=== PATIENT | male | born 1990 | race Hispanic/Latino ===

== ENCOUNTER 2019-12-21 05:16 | Emergency (ER) | payer SELFPAY ==
[2019-12-21] MEDS ORDERED: Ketorolac Tromethamine 60 MG/2 ML VIAL ONE (05:58)
== END 2019-12-21 06:02 | disposition home or self-care (01) ==
LOC: ERS 05:16
DX: K03.81 Cracked tooth (principal); K08.89 Other specified disorders of teeth and supporting structures
CPT/HCPCS: 96372; 99282; J1885

== ENCOUNTER 2020-01-11 11:44 | Inpatient (IN) | payer SELFPAY ==
[~2020-01-11 11:44] MED LIST: Dexamethasone 20 MG/5 ML VIAL ONE; Glycopyrrolate 0.2 MG/ML 5 ML SYRINGE ONE; Lidocaine 1% PF 5 ML VIAL ONE; Ondansetron PF 4 MG/2 ML Vial ONE; PROPOFOL 200 MG/20 ML VIAL ONE; Rocuronium Bromide 10 MG/ML (10ML VIAL) ONE
[2020-01-11] MEDS ORDERED: Acetaminophen 500 MG TAB ONE (12:14)
[2020-01-11 13:17] LABS: #Lymphocytes 0.6 thou/uL (1.20-3.40); #Monocytes 0.8 thou/uL (0.11-0.59); #Neutrophils 10.7 thou/uL (1.40-6.50); %Basophils 0.3 % (0.0-1.0); %Eosinophils 0.4 % (0.0-10.0); %Lymphocytes 4.8 % (21.0-51.0); %Monocytes 6.4 % (0.0-10.0); %Neutrophils 88.2 % (42.0-75.0); Hemoglobin 14.1 g/dL (14.0-18.0); Mean Corpuscular HGB CONC 34.9 g/dL (32.0-36.0); Mean Corpuscular Hemoglobin 30.9 pg (27.0-31.0); Mean Corpuscular Volume 88.5 fL (78.0-98.0); Mean Platelet Volume 7.2 fL (7.4-10.4); Platelet Count 201 thou/uL (130-400); Red Blood Cell (RBC) Count 4.57 mill/uL (4.70-6.10); White Blood Cell (WBC) Count 12.2 thou/uL (4.8-10.8)
[2020-01-11] MEDS ORDERED: Clindamycin/D5W 900 mg/50 ml Premix Bag ONE ×2 (13:26→18:43)
[2020-01-11 13:54] LABS: ALT (SGPT) 18 U/L (8-55); AST (SGOT) 18 U/L (5-34); Albumin 4.2 g/dL (3.5-5.0); Alkaline Phosphatase 59 U/L (40-110); Anion Gap 13 mmol/L (10-20); BUN (Urea Nitrogen) 11 mg/dL (8.9-20.6); Bilirubin, Total 0.8 mg/dL (0.2-1.2); Calc. Creatinine Clearance 0 mL/min (70-130); Calcium 8.9 mg/dL (7.8-10.44); Carbon Dioxide 24 mmol/L (22-29); Chloride 100 mmol/L (98-107); Estimated GFR-MDRD Greater than 90; Globulin 2.7 g/dL (2.4-3.5); Glucose 111 mg/dL (70-105); Potassium 3.8 mmol/L (3.5-5.1); Protein, Total 6.9 g/dL (6.0-8.3); Sodium 133 mmol/L (136-145)
--- NOTE | 2020-01-11 14:12 | CT ---
CT neck soft tissues with contrast: DATE: 01/11/2020 HISTORY: 29-year-old male with left facial swelling and fever. FINDINGS: There is periapical lucency of bone around the root of the most posterior left lower molar tooth. At the lingual side of the left posterior aspect of the oral cavity, there are 2 tiny moderately low density focal lesions surrounded by rim of enhancement, consistent with tiny abscesses in the left gi ngiva. There is infiltrating edema throughout the left submandibular space, including circumferential surrou nding of the left submandibular gland, in the left parapharyngeal space, with involvement of the region of the left palatine tonsil, extending across the retropharyngeal space to the contralateral r ight side of the space posterior to the right posterior oral cavity. There is thickening of the adenoids, and the edema of the pharyngeal mucosal space of the oropharynx, including level of palatine tonsils, and edema of the uvula, causes at least moderate narrowing of the oropharyngeal airway. The epiglottis and the rest of the larynx are normal. No cervical lymphaden opathy by size criteria. Normal appearance of thyroid gland and trachea. Lung apices are grossly clear. IMPRESSION: 1. Left-sided odontogenic infection: Left dental abscess involving the lingual side of the gingiva ne ar periapical lucency involving left mandibular last molar tooth. 2. Edema representing cellulitis spilling into different spaces in the neck, consistent with cellulit is, most severely affecting the left submandibular space. This raises the possibility of Ahsan's angina.. 3. At the level of the oropharynx, the airway is mildly to moderately narrowed at this time.
[2020-01-11] MEDS ORDERED: Ondansetron PF 4 MG/2 ML Vial IVP PRN (15:33)
[2020-01-11] MEDS ORDERED: Calcium Carbonate 500 MG ChewTAB PO PRN (15:33)
[2020-01-11] MEDS ORDERED: Senokot S 8.6-50 MG TAB PO PRN (15:33)
[2020-01-11] MEDS ORDERED: Ondansetron ODT 4 MG TAB PO PRN (15:33)
[2020-01-11] MEDS ORDERED: HYDROcodone/Acetaminophen 5/325 mg Tablet PO PRN (15:33)
[2020-01-11] MEDS ORDERED: Acetaminophen 325 MG TAB PO PRN (15:33)
[2020-01-11] MEDS ORDERED: Ketorolac Tromethamine 30 MG/ML VIAL IVP PRN (15:36)
[2020-01-11] MEDS ORDERED: Cepastat Lozenges 1 LOZ PO PRN (15:37)
[2020-01-11] MEDS ORDERED: Clindamycin/D5W 900 MG in Premix Bag 1 BAG IVPB SCH (15:45)
[2020-01-11 17:11] VITALS: BMI 22.1
[2020-01-11] MEDS ORDERED: Lidocaine 1% w/Epinephrine 1:100K 20 ML VIAL ONE (17:52)
[2020-01-11] MEDS ORDERED: Chlorhexidine Gluconate 15 ML UDCUP SSP ONE (17:52)
[2020-01-11] MEDS ORDERED: Bacitracin Zinc Ointment 30 gm TUBE ONE (17:52)
[2020-01-11] MEDS ORDERED: Ampicillin/Sulbactam 3 GM in Sodium Chloride 0.9% 100 ML IVPB SCH (18:00)
[2020-01-11] MEDS ORDERED: Fentanyl 100 MCG/2 ML VIAL ONE (18:05)
[2020-01-11] MEDS ORDERED: Dexmedetomidine 200 MCG/2 ML VIAL ONE (18:05)
[2020-01-11] MEDS ORDERED: AFRIN NASAL MIST 15 ML BOT ONE (18:50)
[2020-01-11] MEDS: Famotidine 20 MG TAB PO SCH (21:05)
[2020-01-11] MEDS: diphenhydrAMINE 25 MG CAP PO PRN (21:05)
[2020-01-11] MEDS: Sodium Chloride 0.9% 1,000 ML IV SCH (21:06)
[2020-01-11] MEDS: Ampicillin/Sulbactam 3 GM in Sodium Chloride 0.9% 100 ML IVPB SCH (22:47)
[2020-01-12] MEDS: Ampicillin/Sulbactam 3 GM in Sodium Chloride 0.9% 100 ML IVPB SCH ×2 (03:02→09:34)
[2020-01-12] MEDS: Sodium Chloride 0.9% 1,000 ML IV SCH (05:10)
[2020-01-12 06:12] LABS: #Lymphocytes 0.7 thou/uL (1.20-3.40); #Monocytes 0.7 thou/uL (0.11-0.59); #Neutrophils 8.7 thou/uL (1.40-6.50); %Eosinophils 0.1 % (0.0-10.0); %Lymphocytes 6.7 % (21.0-51.0); %Monocytes 6.7 % (0.0-10.0); %Neutrophils 86.5 % (42.0-75.0); Hemoglobin 12.8 g/dL (14.0-18.0); Mean Corpuscular HGB CONC 35.5 g/dL (32.0-36.0); Mean Corpuscular Hemoglobin 31.6 pg (27.0-31.0); Mean Corpuscular Volume 89.1 fL (78.0-98.0); Mean Platelet Volume 7.9 fL (7.4-10.4); Platelet Count 196 thou/uL (130-400); Red Blood Cell (RBC) Count 4.04 mill/uL (4.70-6.10)
[2020-01-12 06:38] LABS: Anion Gap 12 mmol/L (10-20); BUN (Urea Nitrogen) 10 mg/dL (8.9-20.6); Calc. Creatinine Clearance 115 mL/min (70-130); Calcium 8.8 mg/dL (7.8-10.44); Carbon Dioxide 23 mmol/L (22-29); Chloride 104 mmol/L (98-107); Estimated GFR-MDRD Greater than 90; Glucose 131 mg/dL (70-105); Potassium 4.3 mmol/L (3.5-5.1); Sodium 135 mmol/L (136-145)
[2020-01-12] MEDS: diphenhydrAMINE 25 MG CAP PO PRN (07:16)
--- NOTE | 2020-01-12 08:32 | HP ---
The patient was seen and examined on January 11, 2020. CHIEF COMPLAINT: Dental pain of one day duration. HISTORY OF PRESENT ILLNESS: The patient is a 29-year-old male with history of dental abscess in the past, presented to the emergency room with above complaints. Three weeks ago, the patient was evaluated in the emergency room for toothache. He was found to have a dental abscess. He received a dose of Toradol along with penicillin and was discharged home. He never was seen by a dentist as outpatient. Over the last 2 to 3 days, he started having toothache that is progressively getting worse. He noticed some swelling of his jaw as well. He has had fever along with chills. He had difficulty swallowing as well. He had one episode of vomiting. He had difficulty keeping the jaw open. In the emergency room, his initial vital signs showed temperature 103.1 with respirations 20, pulse of 105 with a blood pressure 133/79, O2 saturation 97% on room air. CT scan of the neck and soft tissue was consistent with left-sided odontogenic infection along with extension to the deep space in the neck consistent with Ahsan's angina. He received clindamycin along with IV fluid in the emergency room. PAST MEDICAL HISTORY: Reviewed with the patient and none. PAST SURGICAL HISTORY: Appendectomy. ALLERGIES: NO KNOWN DRUG ALLERGIES. CURRENT HOME MEDICATIONS: Reviewed with the patient and none. SOCIAL HISTORY: The patient smokes up to one pack a day. Denies any alcohol or drug use. He lives at home with his family. FAMILY HISTORY: Negative for heart disease. REVIEW OF SYSTEMS: All other review of systems was reviewed and was found negative. PHYSICAL EXAMINATION: VITAL SIGNS: As discussed above. GENERAL: A 29-year-old male, in mild distress due to the pain. HEENT: Head, atraumatic and normocephalic. Sclerae anicteric. Trismus along with swelling in the left lower molar area. There was some lymph nodes palpable as well along with mild swelling. NECK: Supple, no JVD. Lymph nodes as discussed above. LUNGS: Clear to auscultation bilaterally. No wheezing, rales, or rhonchi. HEART: S1 and S2 present. Regular rate and rhythm. No rubs or gallops. ABDOMEN: Soft, nontender. Bowel sounds present. EXTREMITIES: No edema or calf tenderness. NEUROLOGIC: Grossly nonfocal, moves all 4 extremities. PSYCHIATRY: Alert, awake, oriented x3. SKIN: Warm and dry. LYMPH NODE: No palpable lymph nodes in the neck. PERIPHERAL VASCULAR: Radial pulses palpable bilaterally. MUSCULOSKELETAL: No joint swelling or tenderness. LABORATORY FINDINGS: CBC showed WBC 12.2 with hemoglobin 14.1, hematocrit 40.4, platelet 201. Chemistry showed sodium 133, potassium 3.8, chloride 100, bicarb 24, BUN 11, creatinine 0.84. Blood cultures have been sent. CT scan of the soft tissue by my review as discussed above. IMPRESSION: 1. Sepsis secondary to dental abscess/Ahsan's angina. 2. Tobacco dependence. 3. Hyponatremia. 4. Acute pain secondary to #1. PLAN: The patient will be monitored on the medical floor. He will be kept n.p.o. We will start him on IV Unasyn along with IV fluids. Pain controlled. Consultation with oral surgeon. Recheck labs in a.m. Blood cultures have been sent. The patient understands the above plan of care. Job ID: [id number]
[2020-01-12] MEDS: Famotidine 20 MG TAB PO SCH (08:55)
[2020-01-12] MEDS ORDERED: Saccharomyces boulardii 250 MG CAP PO SCH (09:00)
[2020-01-12] MEDS ORDERED: FLU VACC QS2019-20(6MOS UP)/PF 60 MCG/0.5 ML SYRINGE IM ONE (09:00)
[2020-01-12 14:42] VITALS: BP 150/82; TEMP 98.7
--- NOTE | 2020-01-12 19:13 | DIS ---
DATE OF ADMISSION: 01/11/2020 DATE OF DISCHARGE: 01/12/2020 DISCHARGE DISPOSITION: Home. FOLLOWUP: 1. Follow up with primary care physician at [facility] in 1 week. 2. Follow up with oral maxillofacial surgeon, Dr. Kaushik Storey. ALLERGIES: NO KNOWN DRUG ALLERGIES. DISCHARGE MEDICATIONS: 1. Augmentin 875 mg b.i.d. 2. Tylenol No.3. 3. Chlorhexidine twice a day. 4. Ibuprofen as needed for pain control. The patient was seen on the day of discharge. Denies any new complaints. No chest pain, shortness of breath, palpitations, fever, or chills reported. His blood cultures remained negative. SIGNIFICANT LABORATORY DATA: Sodium at discharge is 135, on admission 133. WBC on admission 12.2, at discharge was 10.0. BRIEF HOSPITAL COURSE: The patient is a 29-year-old male, who presented to the emergency room with dental pain of one day duration. His workup was consistent with sepsis secondary to dental abscess/Ahsan angina. He underwent incision and drainage by Dr. Storey. Official surgical report is pending at this time. He was placed on IV Unasyn 3 g every 6 hourly. The patient has been cleared by Dr. Storey for discharge on oral Augmentin. Primary care physician advised to follow up on the final blood cultures. FINAL DIAGNOSES: 1. Sepsis secondary to dental abscess/Hasan angina. 2. Tobacco dependence. 3. Hyponatremia. 4. Acute pain secondary to #1. Job ID: [id number]
--- NOTE | 2020-01-15 10:37 | OP ---
DATE OF PROCEDURE: 01/11/2020 PREOPERATIVE DIAGNOSIS: Left sublingual left vestibular space infection. TREATMENT: Extraction of tooth #17. POSTOPERATIVE DIAGNOSIS: Left sublingual vestibular space infection. ESTIMATED BLOOD LOSS: Less than 5 mL. FINDINGS: Nonrestorable mobile tooth #17 with associated left mild vestibular edema. COMPLICATIONS: None. DISPOSITION: PACU. INDICATIONS FOR SURGERY: The patient was met in the preoperative holding area. The patient presented to the ED with complaints of left facial pain. Upon CT imaging noted small loculated areas of abscess in the sublingual and vestibular space. After clinical exam, recommended procedure was extraction of #17 with incision and drainage. Discussed risks, benefits, indications, and alternative procedures. The patient and mother elected to proceed forward with the recommended surgery to extract #17 with associated incision and drainage. DESCRIPTION OF PROCEDURE: On the day of surgery, the patient again was met in the preoperative holding area, transferred to the operating room B. Identification, site, and procedure were confirmed. The patient was connected to the standard cardiopulmonary monitors and was deemed a good candidate to undergo general anesthesia. He was induced into a state of general anesthesia and intubated via nasoendotracheal tube. Secured by the surgical team. The patient was prepped and draped in standard sterile fashion. A bite block and throat pack were applied. A total of 5 mL of 2% lidocaine with 1:100,000 epinephrine were infiltrated in the left inferior alveolar nerve block and left vestibular space. Next, using a 15 blade, made a distal buccal incision along the distal buccal line angle of #17 extended sulcularly to the mesial of tooth #18. Full-thickness mucoperiosteal flap was reflected using elevators. Tooth #17 was delivered without complication. Curettage of site. Next, using mosquito hemostats, performed incision and drainage. No purulence was appreciated. No floor of mouth elevation was appreciated. Copious sterile saline irrigation. No uvular deviation was noted. No concern for loss of airway. Used 4-0 chromic gut suture x1. Placement site #17 placed Gelfoam in site #17. The patient was extubated without incident and transferred to the floor with spontaneous respirations intact. Job ID: [id number]
== END 2020-01-12 14:57 | disposition home or self-care (01) | DRG 872 ==
LOC: ERS 11:44 → T4-B 15:24
PROVIDERS: ADMIT Internal Medicine; ATTEND Internal Medicine
PROC: 0CDXXZ0 Extraction of Lower Tooth, Single, External Approach (ICD-10-PCS; principal; 2020-01-11)
DX: A41.9 Sepsis, unspecified organism (principal); E87.1 Hypo-osmolality and hyponatremia; K12.2 Cellulitis and abscess of mouth; F17.210 Nicotine dependence, cigarettes, uncomplicated; K04.7 Periapical abscess without sinus; Z90.49 Acquired absence of other specified parts of digestive tract
CPT/HCPCS: 36415; 70491; 80048; 80053; 83605; 85025; 87040; 96365; J0295; J1100; J1885; J2001; J2405; J2704; J3010; J3490; Q0163